=== PATIENT | female | born 1990 | race Caucasian/White ===

== ENCOUNTER 2023-10-03 12:01 | Emergency (ER) | payer OTHER, SELFPAY ==
--- NOTE | ~2023-10-03 | CT_ITS ---
EXAMINATION: CT brain wo con DATE: 10/03/2023 15:54 INDICATION: headache . TECHNIQUE: Computed tomography (CT) of the head was performed without intravenous contrast. The mA wa s adjusted according to patient size. Iterative reconstruction technique was employed. The dose-lengt h product was 605.33 mGy-cm. COMPARISON: None. FINDINGS: No acute intracranial hemorrhage or extra-axial fluid collection. No hydrocephalus, mass, or herniation. No acute ischemic infarct. Unremarkable dural venous sinus attenuation. No acute osseous abnormality. The aerated spaces are clear. IMPRESSION: No acute intracranial process. Reviewed, dictated and finalized at location K.
[2023-10-03 12:07] VITALS: BP 109/61; PULSE 62; RESP 18; TEMP 36.5; O2SAT 100
[2023-10-03 12:59] VITALS: BP 140/116; PULSE 65; RESP 14; O2SAT 98
--- NOTE | 2023-10-03 13:10 | ECG_ITS ---
Test Date: 2023-10-03 13:26:42 Measurements Intervals [place] Rate: 63 P: 50 UT: 159 QRS: 41 QRSD: 89 T: 10 QT: 405 QTc: 415 Interpretive Statements SINUS RHYTHM WITH MARKED SINUS ARRHYTHMIA No previous ECG available for comparison Electronically Signed On 10-03-2023 16:04:44 CDT by Tami Tyler M.D.
--- NOTE | 2023-10-03 13:11 | ED.SYNCOPE ---
HPI - Syncope General Chief Complaint: Syncope Stated Complaint: syncope Time Seen by Provider: 10/03/23 13:03 History of Present Illness HPI narrative: Pt was standing for some time and working on a computer and said the computer screen started to look blurry and the next thing she knew she was on the ground. Pt denies injury from syncopal episode. Pt says she did not have palpitations or CP. Pt is but denies abdominal pain or bleeding. Pt has follow up OB appointmentin 3 days. Pt has never had an episode like this. Pt says she feels fine now. Related Data Home Medications Medication Instructions Recorded Confirmed ondansetron 4 mg disintegrating 4 mg PO Q8H PRN Nausea 10/03/23 10/03/23 tablet prenat.vits,angus,amf-jeqv-yvhkt tablet 10/03/23 10/03/23 Allergies Allergy/AdvReac Type Severity Reaction Status Date / Time acetaminophen [From Percocet] Allergy Unknown Verified 10/03/23 12:18 oxycodone [From Percocet] Allergy Unknown Verified 10/03/23 12:18 hydromorphone [From Dilaudid] AdvReac Agitated Verified 10/03/23 12:18 prochlorperazine AdvReac Agitated Verified 10/03/23 12:18 [From Compazine] sumatriptan [From Imitrex] AdvReac Headache Verified 10/03/23 12:18 Review of Systems Review of Systems: All systems reviewed & are unremarkable except as noted in HPI and below Exam Const: General: healthy appearing and no acute distress Nutritional Appearance: well nourished Orientation/consciousness: patient oriented x3 Limitations: no limitations Eyes: Pupils: Equal, round and reactive pupils present EOM: EOMs intact bilaterally Resp: Effort & Inspection: normal respiratory effort Auscultation: clear to auscultation bilaterally Cardio: Rate: regular rate Rhythm: regular rhythm GI: GI Palp: Yes Soft to palpation and No Tenderness to palpation present (GI) Auscultation: normal bowel sounds Skin: General skin exam: normal color Wounds: no wounds Neuro: General: patient oriented x3, moves all extremities, no meningeal signs and CN's II-XI intact bilaterally Cranial nerves: Yes Nystagmus not present Speech: normal speech Extrem: General: normal to inspection and no clubbing, cyanosis or edema Psych: Mental Status: mental status grossly normal Affect: normal affect Attitude: cooperative Course Vital Signs Vital signs: Vital Signs Temperature 97.7 F 10/03/23 12:07 Pulse Rate 62 10/03/23 12:07 Respiratory Rate 18 10/03/23 12:07 Blood Pressure 109/61 10/03/23 12:07 Pulse Oximetry 100 10/03/23 12:07 Oxygen Delivery Room Air 10/03/23 12:07 Temperature 97.7 F 10/03/23 12:07 Pulse Rate 74 10/03/23 15:15 Respiratory Rate 18 10/03/23 15:57 Blood Pressure 109/75 10/03/23 15:57 Pulse Oximetry 100 10/03/23 15:57 Oxygen Delivery Room Air 10/03/23 12:07 MDM - Syncope MDM Narrative Medical decision making narrative: pt presents with syncopal episode while standing at computer. Pt is 15 weeks . labs ok ekg non acute, CT brain normal. Pt better after fluids. home on holter monitor. Differential Diagnosis Differential diagnosis: Likely vasovagal syncope, complete atrioventricular block, dehydration and other (volume shifts related to ) Lab Data 10/03/23 14:03 10/03/23 14:03 Labs: Lab Results 10/03/23 10/03/23 Range/Units 14:03 14:03 WBC 11.2 H (4.5-10.0) K/mm3 RBC 4.44 (4.2-5.4) M/mm3 Hgb 13.3 (12.0-15.0) g/dL Hct 42.3 (37.0-47.0) % MCV 95.3 (80-100) fl MCH 30.0 (26-34) pg MCHC 31.4 L (32-36) g/dl RDW 13.8 (11.5-14.5) % Plt Count 276 (150-375) k/mm3 MPV 10.8 H (7.4-10.4) fl Immature Gran % (Auto) 0.4 (0-0.5) % Neut % (Auto) 78.5 H (45.5-73.1) % Lymph % (Auto) 14.9 L (18.3-44.2) % [place] % (Auto) 4.9 (2.6-8.5) % Eos % (Auto) 1.0 (0-4.4) % Baso % (Auto) 0.3 (0.2-1.2) % Lymph # (Auto) 1.67 (0.9-3.2) K/mm3 [place] # (Auto) 0.
[2023-10-03 13:14] VITALS: BP 117/75; PULSE 65; RESP 14; O2SAT 100
[2023-10-03] MEDS: SODIUM CHLORIDE 0.9% IV 1,000 ML 999 ML IV CONT (13:31)
[2023-10-03 13:36] VITALS: BP 117/75; BP 118/68; BP 119/84; PULSE 61; PULSE 70; PULSE 95
[2023-10-03 14:14] LABS: Basophils Percent Auto 0.3 % (0.2-1.2); Eosinophils Absolute Auto 0.1 K/mm3 (0-0.3); Hematocrit 42.3 % (37.0-47.0); Hemoglobin 13.3 g/dL (12.0-15.0); Immature Granulocyte Absolute 0.04 K/mm3 (0.00-0.031); Immature Granulocyte Percent A 0.4 % (0-0.5); Lymphocytes Absolute Auto 1.67 K/mm3 (0.9-3.2); Lymphocytes Percent Auto 14.9 % (18.3-44.2); Mean Corpuscular HGB Conc 31.4 g/dl (32-36); Mean Corpuscular Volume 95.3 fl (80-100); Mean Platelet Volume 10.8 fl (7.4-10.4); Monocytes Absolute Auto 0.6 K/mm3 (0.1-0.6); Monocytes Percent Auto 4.9 % (2.6-8.5); Neutrophils Absolute Auto 8.8 K/mm3 (1.3-6.7); Neutrophils Percent Auto 78.5 % (45.5-73.1); Platelet Count Result 276 k/mm3 (150-375); Red Blood Count 4.44 M/mm3 (4.2-5.4); Red Cell Distribution Width 13.8 % (11.5-14.5); White Blood Count 11.2 K/mm3 (4.5-10.0)
[2023-10-03 14:28] LABS: Alanine Aminotransferase 10 U/L (6-35); Albumin Level 3.8 g/dL (3.5-5.1); Alkaline Phosphatase 93 U/L (38-126); Anion Gap 8 mmol/L (4-12); Aspartate Amino Transferase 19 U/L (14-36); Bilirubin,Total 0.6 mg/dL (0.2-1.3); Blood Urea Nitrogen 7 mg/dL (7-17); Calcium 9.1 mg/dL (8.4-10.2); Carbon Dioxide 19 mmol/L (22-30); Chloride 109 mmol/L (98-107); Estimated CRCL calculation 100 ml/min; Estimated Glomerular Filt Rate > 60; Glucose 74 mg/dL (65-110); Magnesium 1.8 mg/dL (1.6-2.3); Potassium 4.1 mmol/L (3.4-5.0); Sodium 136 mmol/L (137-145)
[2023-10-03 14:38] LABS: Troponin I < 0.012 ng/mL (0.000-0.034)
[2023-10-03 15:15] VITALS: PULSE 74; RESP 16; O2SAT 100
[2023-10-03 15:57] VITALS: BP 109/75; RESP 18; O2SAT 100
[2023-10-03] MEDS: ACETAMINOPHEN 500 MG TABLET 1000 MG PO (16:25)
--- NOTE | 2023-10-09 16:24 | WPDHOLTEREM ---
Holter/Event Monitor Holter/Event Monitor Date of procedure: 10/03/23 Holter/Event Procedure: 48 Hr Holter Monitor Indications: Syncope Conclusion: 1. 48 hour holter monitor on 10/03/23. 2. Underlying rhythm is sinus rhythm. HR range 47-160 bpm; average HR 70 bpm. HR at 47 bpm was at 04:08. HR at 160 bpm was at 12:27. 3. There are 92 premature supraventricular complexes and 10 supraventricular couplets. No supraventricular tachycardia. 4. There are 5 premature ventricular complexes. No ventricular tachycardia. 5. No sinoatrial or atrioventricular blocks. No significant pauses greater than 2 seconds. 6. No symptoms available for correlation.
== END 2023-10-03 16:40 | disposition home or self-care (01) ==
PROVIDERS: Emergency Provider Emergency Medicine
DX: O26.892 Other specified pregnancy related conditions, second trimester (principal); R55 Syncope and collapse; O99.412 Diseases of the circulatory system complicating pregnancy, second trimester; I49.1 Atrial premature depolarization; I49.3 Ventricular premature depolarization; Z3A.15 15 weeks gestation of pregnancy
CPT/HCPCS: 36415; 70450; 80053; 83735; 84484; 85025; 93005; 93225; 93226; 96360; 99284; A9270; J7030